=== PATIENT | male | born 1945 | race Caucasian/White ===

== ENCOUNTER 2019-12-31 14:47 | Emergency (ER) | payer OTHER ==
[2019-12-31 15:40] LABS: Absolute Lymphocytes (CBC) 0.4 K/uL (0.7-4.9); Basophils % 0.1 % (0-1.3); Hematocrit 25.4 % (39.6-49.0); Lymphocytes % 1.3 % (15.3-44.8); MPV 7.8 fL (7.6-11.3); RBC Red Blood Cell Count 3.25 M/uL (4.33-5.43)
[2019-12-31 15:41] LABS: Protime INR 1.31
--- NOTE | 2019-12-31 15:54 | RAD REPORT ---
EXAM DESCRIPTION: [place] Single View12/31/2019 3:20 pm CLINICAL HISTORY: sob COMPARISON: none FINDINGS: Multiple, bilateral lung masses. Largest right upper lobe measuring 7.6 centimeters. The heart is normal size IMPRESSION: Multiple, bilateral lung masses consistent with neoplasm
[2019-12-31 15:56] LABS: ALT/SGPT 51 U/L (12-78); AST/SGOT 48 U/L (15-37); Albumin 1.8 g/dL (3.4-5.0); Alkaline Phosphatase 198 U/L (45-117); BUN Blood Urea Nitrogen 19 mg/dL (7-18); Bicarbonate 26 mmol/L (21-32); Bilirubin Direct 0.1 mg/dL (0-0.2); Bilirubin Total 0.3 mg/dL (0.2-1.0); Glucose Level 134 mg/dL (74-106); Magnesium 2.1 mg/dL (1.8-2.4); NT PRO-BNP 1665 pg/mL (<125); Potassium 4.1 mmol/L (3.5-5.1); Protein, Total 7.4 g/dL (6.4-8.2); Sodium Level 138 mmol/L (136-145); Troponin (Emerg Dept Use Only) 0.02 ng/mL (0.0-0.045)
[2019-12-31 16:33] LABS: Urine White Blood Cell Casts OK
[2019-12-31 16:34] LABS: Anisocytosis 1+; Blood Morphology Comment NOTED (NOT SEEN); Platelet Estimate INCR; Poikilocytosis 2+
--- NOTE | 2019-12-31 17:49 | EDPHYS ---
Physician Documentation [facility] Name: Brent Winters Age: 74 yrs Sex: Male : 1945 Arrival Date: 12/31/2019 Time: 14:53 Bed 19 Private MD: ED Physician Jaycob cMknight HPI: 12/30 15:36 This 74 yrs old Male presents to ER via EMS with complaints of Shortness Of pm1 Breath. 15:36 The patient has shortness of breath at rest. Onset: The symptoms/episode began/occurred pm1 today. Duration: The symptoms are continuous. The patient's shortness of breath is aggravated by possibly from tracheostomy blockage. Associated signs and symptoms: Pertinent negatives: chest pain, non-productive cough, productive cough, fever, nausea, vomiting. Severity of symptoms: in the emergency department the symptoms are unchanged. The patient has been recently seen by a physician: seen at [facility] ER for the same complaint to day and was discharged home. Patient was released from admission from the [facility] for the same complaint. Historical: - Allergies: 14:51 No Known Allergies; rb1 - PMHx: 14:51 Lung Cancer; Throat Cancer; rb1 - PSHx: 14:51 Trach; rb1 - Immunization history:: Adult Immunizations up to date. - Social history:: Smoking status: unknown. ROS: 15:36 Constitutional: Negative for fever, chills, and weight loss, Eyes: Negative for injury, pm1 pain, redness, and discharge, ENT: Negative for injury, pain, and discharge, Neck: Negative for injury, pain, and swelling, Cardiovascular: Negative for chest pain, palpitations, and edema. 15:36 Abdomen/GI: Negative for abdominal pain, nausea, vomiting, diarrhea, and constipation. 15:36 : Negative for injury, bleeding, discharge, and swelling, MS/Extremity: Negative for injury and deformity, Skin: Negative for injury, rash, and discoloration, Neuro: Negative for headache, weakness, numbness, tingling, and seizure. 15:36 Respiratory: Positive for shortness of breath, Feels that his tracheostomy tube is plugged up, Negative for cough. 15:36 Back: Positive for of the right subscapular area, pain from a biopsy, Negative for injury or acute deformity. 15:36 All other systems are negative. Exam: 15:36 Constitutional: This is a well developed, well nourished patient who is awake, alert, pm1 and in no acute distress. Head/Face: Normocephalic, atraumatic. Chest/axilla: Normal chest wall appearance and motion. Nontender with no deformity. No lesions are appreciated. 15:36 Back: No spinal tenderness. No costovertebral tenderness. Full range of motion. Skin: Warm, dry with normal turgor. Normal color with no rashes, no lesions, and no evidence of cellulitis. MS/ Extremity: Pulses equal, no cyanosis. Neurovascular intact. Full, normal range of motion. 15:36 Cardiovascular: Exam negative for acute changes, Rate: tachycardic, actual rate is 100 bpm, Rhythm: regular, Pulses: no pulse deficits are appreciated, Edema: is not appreciated. 15:36 Respiratory: the patient does not display signs of respiratory distress, able to talk without difficulty, Respirations: normal. 15:36 Abdomen/GI: Inspection: peg present without any signs of skin breakdown or infection. 15:36 Neuro: Exam negative for acute changes, Orientation: is normal, Mentation: is normal, Motor: is normal, moves all fours, Sensation: is normal, no obvious gross deficits. Vital Signs: 14:51 BP 155 / 85; Pulse 103; Resp 20; Pulse Ox 97% on 10% Simple Mask; rb1 15:08 BP 159 / 83; Pulse 104; Resp 18; Temp 98.4; Pulse Ox 97% on 10% Non-rebreather mask; dh4 16:30 BP 128 / 74; Pulse 99; Resp 30; Pulse Ox 97% on R/A; Pain 3/10; ls4 18:00 BP 132 / 76; Pulse 78; Resp 19; Pulse Ox 97% on R/A; Pain 0/10; ls4 18:46 BP 138 / 78; Pulse 76; Resp 21; Temp 98.3; Pulse Ox 96% on R/A; Pain 0/10; ls4 MDM: 15:11 Patient medically screened. pm1 15:24 Data reviewed: vital signs. Data interpreted: Pulse oximetry: on room air is 97 %. pm1 Interpretation: normal. 17:47 Counseling: I had a detailed discussion with the patient and/or guardian regarding: the pm1 historical points, exam findings, and any diagnostic results supporting the discharge/admit diagnosis, lab results, radiology results, the need for outpatient follow up, to return to the emergency department if symptoms worsen or persist or if there are any questions or concerns that arise at home. 17:49 ED course: After removal of mucus plug with suctioning by RT patent's shortness of pm1 breath resolved and he said he feels ready to go home now. 12/30 15:02 Order name: Basic Metabolic Panel; Complete Time: 15:57 [facility] 12/30 15:02 Order name: CBC with Diff; Complete Time: 16:44 [facility] 12/30 15:02 Order name: LFT's; Complete Time: 15:57 [facility] 12/30 15:02 Order name: Magnesium; Complete Time: 15:57 [facility] 12/30 15:02 Order name: NT PRO-BNP; Complete Time: 15:57 [facility] 12/30 15:02 Order name: PT-INR; Complete Time: 15:57 [facility] 12/30 15:02 Order name: Troponin (emerg Dept Use Only); Complete Time: 15:57 [facility] 12/30 15:02 Order name: XRAY Chest (1 view); Complete Time: 15:57 [facility] 12/30 15:02 Order name: Cardiac monitoring; Complete Time: 15:03 [facility] 12/30 15:02 Order name: EKG - Nurse/Tech; Complete Time: 23:07 [facility] 12/30 15:02 Order name: IV Saline Lock; Complete Time: 18:10 [facility] 12/30 15:02 Order name: Labs collected and sent; Complete Time: 18:10 [facility] 12/30 15:58 Order name: CBC Smear Scan; Complete Time: 16:44 EDMS 12/30 15:02 Order name: O2 Per Protocol; Complete Time: 18:09 [facility] 12/30 15:02 Order name: O2 Sat Monitoring; Complete Time: 18:09 ls4 Administered Medications: No medications were administered Disposition: 12/31/19 17:48 Discharged to Home. Impression: Shortness of breath, Encounter for attention to tracheostomy. - Condition is Stable. - Discharge Instructions: Shortness of Breath, How to Clean a Tracheostomy Tube, Adult, How to Suction a Tracheostomy. - Medication Reconciliation Form, Thank You Letter, Antibiotic Education, Prescription Opioid Use form. - Follow up: Emergency Department; When: As needed; Reason: Worsening of condition. Follow up: Private Physician; When: 2 - 3 days; Reason: Recheck today's complaints, Continuance of care, Re-evaluation by your physician. - Problem is new. - Symptoms have improved. Addendum: 01/03/2020 07:37 Co-signature as Attending Physician, Jaycob Mcknight MD. r n Signatures: Dispatcher [employer] EDMS Jaycob Mcknight MD MD rn Juana Montez, RN RN rb1 Marques Scanlon NP [employer] pm1 Patt Saleh RN RN ls4 Corrections: (The following items were deleted from the chart) 12/30 19:04 17:48 12/31/2019 17:48 Discharged to Home. Impression: Shortness of breath; Encounter rb1 for attention to tracheostomy. Condition is Stable. Forms are Medication Reconciliation Form, Thank You Letter, Antibiotic Education, Prescription Opioid Use. Follow up: Emergency Department; When: As needed; Reason: Worsening of condition. Follow up: Private Physician; When: 2 - 3 days; Reason: Recheck today's complaints, Continuance of care, Re-evaluation by your physician. Problem is new. Symptoms have improved. pm1
--- NOTE | 2019-12-31 17:49 | ER ---
Nurse's Notes [facility] Name: Brent Winters Age: 74 yrs Sex: Male : 1945 Arrival Date: 12/31/2019 Time: 14:53 Bed 19 Private MD: Diagnosis: Shortness of breath;Encounter for attention to tracheostomy Presentation: 12/30 14:51 Chief complaint: EMS states: Pt. was at his son's house and complained of SOB. History rb1 of Lung and Throat Cancer. NKDA Was recently admitted to the [facility] and discharged with Bronchitis and is being treated with antibiotics. He was 91-92% RA, EMS administered O2 15 L mask over trach and O2 went to 99-100%. HR 105, BP 138/80, 18 G L AC. 14:51 Method Of Arrival: EMS: [facility] rb1 14:51 Acuity: UNA 3 rb1 14:51 Coronavirus screen: Proceed with normal triage. Patient denies a cough. Patient reports ls4 shortness of breath or difficulty breathing. Patient denies measured and/or subjective temperature greater than 100.4F prior to today's visit. Patient denies travel on a cruise ship or to a country the [facility] currently lists as an affected area. Patient denies contact with known and/or suspected case of COVID-19. Ebola Screen: No symptoms or risks identified at this time. 14:51 Initial Sepsis Screen: Does the patient meet any 2 criteria? No. Patient's initial ls4 sepsis screen is negative. Does the patient have a suspected source of infection? No. Patient's initial sepsis screen is negative. Risk Assessment: Do you want to hurt yourself or someone else? Patient reports no desire to harm self or others. Onset of symptoms was December 30, 2019 at 15:00. Care prior to arrival: None. Activity prior to arrival: None. Triage Assessment: 15:00 General: Appears in no apparent distress. comfortable. Respiratory: Reports shortness ls4 of breath at rest on exertion cough that is Airway via trache Trachea midline Respiratory effort is labored, Respiratory pattern is tachypnea Onset: The symptoms/episode began/occurred gradually, the patient has moderate shortness of breath. 15:00 General: Behavior is cooperative, anxious, fussy. ls4 Historical: - Allergies: 14:51 No Known Allergies; rb1 - PMHx: 14:51 Lung Cancer; Throat Cancer; rb1 - PSHx: 14:51 Trach; rb1 - Immunization history:: Adult Immunizations up to date. - Social history:: Smoking status: unknown. Screenin:28 Abuse screen: Denies threats or abuse. Denies injuries from another. Nutritional ls4 screening: No deficits noted. Tuberculosis screening: No symptoms or risk factors identified. Fall Risk None identified. Assessment: 14:55 Pain: Denies pain. Cardiovascular: Denies chest pain, Rhythm is sinus tachycardia. ls4 14:55 Neuro: No deficits noted. Respiratory: Airway is patent via trache Respiratory effort ls4 is labored, Respiratory pattern is tachypnea Breath sounds are diminished bilaterally. GI: No deficits noted. No signs and/or symptoms were reported involving the gastrointestinal system. Derm: Skin is intact, Skin is dry, Skin is normal, Skin temperature is warm. Musculoskeletal: No signs and/or symptoms reported regarding the musculoskeletal system. 16:27 General:. ls4 16:28 Reassessment: No changes from previously documented assessment. Patient and/or family ls4 updated on plan of care and expected duration. Pain level reassessed. Patient is alert, oriented x 3, equal unlabored respirations, skin warm/dry/pink. ATTEMPTED TO SUCTION PATIENT, PT COULD NOT TOLERATE, PT RESPIRATIONS IMPROVED TO 20, LUNGS CLEAR, SAO2 95 A. 18:00 Reassessment: PT SUCTIONED AND LARGE MUCOUS PLUG RELEASED. PT TOLERATED WELL AND IS NO ls4 LONGER IN DISTRESS. Vital Signs: 14:51 BP 155 / 85; Pulse 103; Resp 20; Pulse Ox 97% on 10% Simple Mask; rb1 15:08 BP 159 / 83; Pulse 104; Resp 18; Temp 98.4; Pulse Ox 97% on 10% Non-rebreather mask; dh4 16:30 BP 128 / 74; Pulse 99; Resp 30; Pulse Ox 97% on R/A; Pain 3/10; ls4 18:00 BP 132 / 76; Pulse 78; Resp 19; Pulse Ox 97% on R/A; Pain 0/10; ls4 18:46 BP 138 / 78; Pulse 76; Resp 21; Temp 98.3; Pulse Ox 96% on R/A; Pain 0/10; ls4 ED Course: 14:53 Patient arrived in ED. rb1 14:55 Patient has correct armband on for positive identification. Bed in low position. Call ls4 light in reach. Side rails up X 1. 14:55 chemical dependency professional on. Pulse ox on. NIBP on. Verbal reassurance given. Diet: Patient given ls4 ice chips. Tolerated well. 14:59 Triage completed. rb1 15:00 No provider procedures requiring assistance completed. Initial lab(s) drawn, by nd, ls4 sent to lab. Inserted saline lock: 18 gauge in left antecubital area, using aseptic technique. Blood collected. Oxygen administration via nasal cannula \T\ 4L/min. 15:02 Patt Saleh, OBDULIA is Primary Nurse. ls4 15:10 Marques Scanlon NP is PHCP. pm1 15:10 Jaycob Mcknight MD is Attending Physician. pm1 15:21 XRAY Chest (1 view) In Process Unspecified. EDMS 19:00 IV discontinued, intact, bleeding controlled, No redness/swelling at site. Pressure ls4 dressing applied. Administered Medications: No medications were administered Outcome: 17:48 Discharge ordered by MD. pm1 19:00 Discharged to home ambulatory. ls4 19:00 Condition: stable 19:00 Discharge instructions given to patient, family, Instructed on discharge instructions, follow up and referral plans. safety practices, Demonstrated understanding of instructions, follow-up care. 19:04 Patient left the ED. rb1 Signatures: Dispatcher [employer] EDMS Juana Montez, RN RN rb1 Marques Scanlon NP DELIVERY MAN pm1 Patt Saleh RN RN 4 [facility] Corrections: (The following items were deleted from the chart) 15:01 15:01 General: Appears ill, Behavior is flat, ls4 ls4 23:17 17:00 BP 138 / 78; Pulse 98bpm; Resp 21bpm; Pulse Ox 96% RA; Temp 98.3F; Pain 0/10; ls4 ls4 23:26 16:28 Reassessment: Patient appears in no apparent distress at this time. Patient ls4 and/or family updated on plan of care and expected duration. Pain level reassessed. Patient is alert, oriented x 3, equal unlabored respirations, skin warm/dry/pink. ls4 23:26 16:27 Reassessment: PT SUCTIONED AND LARGE MUCOUS PLUG RELEASED. PT TOLERATED WELL AND ls4 IS NO LONGER IN DISTRESS ls4 23: 18:46 BP 138 / 78; Pulse 98bpm; Resp 21bpm; Pulse Ox 96% RA; Temp 98.3F; Pain 0/10; ls4 ls4 : 17:35 Reassessment: PT SUCTIONED AND LARGE MUCOUS PLUG RELEASED. PT TOLERATED WELL AND ls4 IS NO LONGER IN DISTRESS ls4
[2019-12-31 19:24] VITALS: O2SAT 97
[2019-12-31 19:25] VITALS: BP 159/83; TEMP 98.4
== END 2019-12-31 19:04 | disposition home or self-care (01) ==
LOC: ER 14:47
DX: Z43.0 Encounter for attention to tracheostomy (principal); Z85.118 Personal history of other malignant neoplasm of bronchus and lung
CPT/HCPCS: 36415; 71045; 80048; 80076; 83735; 83880; 84484; 85025; 85610; 99285